=== PATIENT | male | born 1985 | race Caucasian/White ===

== ENCOUNTER 2016-12-02 11:05 | Emergency (ER) | payer SELFPAY ==
[2016-12-02 11:29] VITALS: BP 148/67
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
[2016-12-02] MEDS ORDERED: Ibuprofen TAB* 800 MG PO ONE (12:49)
== END 2016-12-02 13:12 | disposition home or self-care (01) ==
LOC: ED 11:05
DX: M79.631 Pain in right forearm (principal)
CPT/HCPCS: 99281; A9270-GY